=== PATIENT | male | born 1945 | race Caucasian/White ===

== ENCOUNTER 2017-08-24 23:39 | Inpatient (IN) | payer OTHER ==
[~2017-08-24] VITALS: Ht 180.3 cm; Wt 95.5 kg
[2017-08-25 00:02] LABS: HEMATOCRIT 42.1 % (38.0-50.0); MCH 31.3 PG (29.0-34.0); MCHC 33.7 G/DL (30.0-36.0); MCV 92.9 FL (86-99); MEAN PLAT.VOLUME 10.9 uM^3 (9.0-12.4); PLATELET COUNT 182 K/uL (156-360); RBC DIS.WIDTH-SD 44.5 % (39-53); RED BLOOD COUNT 4.53 M/uL (4.00-5.50); WHITE BLOOD COUNT 14.1 K/uL (4.1-10.2)
[2017-08-25 00:13] LABS: CHLORIDE 107 mEq/L (99-109); POTASSIUM 4.2 mEq/L (3.7-5.4); SODIUM 137 mEq/L (136-147)
[2017-08-25 00:14] LABS: GLUCOSE 163 mg/dL (70-99)
[2017-08-25 00:16] LABS: ANION GAP 10 MEQ/L (2-14)
[2017-08-25 00:18] LABS: GFR ESTIMATE (CALCULATED) 42 mL/min/
[2017-08-25 00:19] LABS: UREA NITROGEN (BUN) 24 mg/dL (9-23)
[2017-08-25 01:13] LABS: TOTAL BILIRUBIN 0.3 mg/dL (0.0-1.0)
[2017-08-25 01:14] LABS: ALKALINE PHOSPHATASE 59 IU/L (3-129)
[2017-08-25 01:17] LABS: DIRECT BILIRUBIN 0.2 mg/dL (0.0-0.3)
[2017-08-25 01:18] LABS: LIPASE 24 U/L (1.0-51.0)
[2017-08-25] MEDS ORDERED: LO-DOSE ASPIRIN81 M2 PO (05:05)
[2017-08-25] MEDS ORDERED: VITAMIN B COMP1 EACH PO (05:05)
[2017-08-25] MEDS ORDERED: LOTRISONE15 GM TP (05:06)
[2017-08-25] MEDS ORDERED: ZYRTEC10 M2 PO (05:06)
[2017-08-25] MEDS ORDERED: FISH OIL 1,0001 EAC7 PO (05:08)
[2017-08-25] MEDS ORDERED: PRINIVIL5 MG PO (05:08)
[2017-08-25] MEDS ORDERED: VITAMIN D-32000 UNI2 PO (05:08)
[2017-08-25] MEDS ORDERED: NIFEDIPINE ER30 MG PO (05:09)
[2017-08-25] MEDS ORDERED: MULTIVITAMIN1 EAC2 PO (05:09)
[2017-08-25] MEDS ORDERED: OMEPRAZOLE20 MG PO (05:10)
[2017-08-25] MEDS ORDERED: MIRALAX17 GM PO (05:10)
[2017-08-25] MEDS ORDERED: SIMVASTATIN10 MG PO (05:10)
[2017-08-25] MEDS ORDERED: TAMSULOSIN HCL0.4 MG PO (05:11)
[2017-08-25] MEDS ORDERED: ULTRAM50 MG PO (05:11)
[2017-08-25] MEDS ORDERED: TERAZOSIN HCL2 MG PO (05:11)
[2017-08-25 05:55] VITALS: BP 114/68
[2017-08-25 06:50] LABS: POINT-OF-CARE METER ID UU14100415
[2017-08-25 07:38] LABS: HEMATOCRIT 37.9 % (38.0-50.0); MCH 31.6 PG (29.0-34.0); MCHC 33.8 G/DL (30.0-36.0); MCV 93.6 FL (86-99); MEAN PLAT.VOLUME 10.6 uM^3 (9.0-12.4); PLATELET COUNT 161 K/uL (156-360); RBC DIS.WIDTH-SD 44.4 % (39-53); RED BLOOD COUNT 4.05 M/uL (4.00-5.50); WHITE BLOOD COUNT 9.7 K/uL (4.1-10.2)
[2017-08-25 07:43] LABS: PROTHROMBIN TIME 11.7 SEC (10.2-12.9)
[2017-08-25 07:46] LABS: PTT 25.3 SEC (25-37)
[2017-08-25 07:56] VITALS: BP 97/48
[2017-08-25 08:07] LABS: CHLORIDE 113 mEq/L (99-109); SODIUM 138 mEq/L (136-147)
[2017-08-25 08:08] LABS: POTASSIUM 5.8 mEq/L (3.7-5.4)
[2017-08-25 08:09] LABS: GLUCOSE 131 mg/dL (70-99)
[2017-08-25 08:10] LABS: ANION GAP 3 MEQ/L (2-14)
[2017-08-25 08:13] LABS: GFR ESTIMATE (CALCULATED) 37 mL/min/
[2017-08-25 08:14] LABS: UREA NITROGEN (BUN) 24 mg/dL (9-23)
[2017-08-25 11:46] LABS: POINT-OF-CARE METER ID UU14100415
[2017-08-25 12:06] VITALS: BP 136/72
[2017-08-25 17:56] VITALS: BP 133/73
[2017-08-25 18:03] LABS: POINT-OF-CARE METER ID UU14100415
[2017-08-25 21:29] VITALS: BP 150/78
[2017-08-26] VITALS (8 sets, daily range): BP systolic 117–141; BP diastolic 64–72
[2017-08-26 00:59] LABS: POINT-OF-CARE METER ID UU14208750
[2017-08-26 05:36] LABS: POINT-OF-CARE METER ID UU14314084
[2017-08-26 07:06] LABS: EOSINOPHIL (%) 2.9 % (0-5); EOSINOPHIL COUNT 0.2 K/uL (0-0.3); IMMATURE GRANULOCYTE (%) 0.4 % (0.0-0.7); LYMPHOCYTE COUNT 1.4 K/uL (1.0-2.8); MCH 31.7 PG (29.0-34.0); MCV 96.1 FL (86-99); MEAN PLAT.VOLUME 11.3 uM^3 (9.0-12.4); MONOCYTE (%) 11.3 % (3-12); MONOCYTE COUNT 0.6 K/uL (0-0.8); NEUTROPHIL (%) 57.2 % (45-76); PLATELET COUNT 143 K/uL (156-360); RBC DIS.WIDTH-CV 13.3 % (11.8-14.6); RBC DIS.WIDTH-SD 47.4 % (39-53); RED BLOOD COUNT 3.85 M/uL (4.00-5.50); WHITE BLOOD COUNT 5.2 K/uL (4.1-10.2)
[2017-08-26 07:29] LABS: ANION GAP 7 MEQ/L (2-14); CHLORIDE 110 MEQ/L (99-109); GFR ESTIMATE (CALCULATED) 40 mL/min/; SAMPLE HEMOLYSIS CHECK 0; SAMPLE ICTERIC CHECK 0; SAMPLE LIPEMIA CHECK 0; SODIUM 140 MEQ/L (136-147); UREA NITROGEN (BUN) 23 mg/dL (9-23)
[2017-08-26 07:37] LABS: GLUCOSE 96 mg/dL (70-99); POTASSIUM 4.6 MEQ/L (3.7-5.4)
[2017-08-26 11:11] LABS: POINT-OF-CARE METER ID UU14314084
[2017-08-26 11:59] LABS: ADD MIUA? YES; BILIRUBIN NEGATIVE; BLOOD MODERATE; COLOR YELLOW ((YELLOW)); GLUCOSE (STRIP) NEGATIVE; KETONES NEGATIVE; LEUKOCYTES TRACE; NITRITE NEGATIVE; PROTEIN (STRIP) NEGATIVE; SPECIFIC GRAVITY 1.019 (1.000-1.030); UROBILINOGEN 0.2 MG/DL (0.2-1.0)
[2017-08-26 12:19] LABS: BACTERIA RARE /HPF; EPITHELIAL CELLS NONE SEEN /HPF; HYALINE CASTS 0-5 /LPF; MUCUS TRACE /LPF; RED BLOOD CELLS 20-30 /HPF (0-5); UCUL ADDED? YES
[2017-08-26 17:00] LABS: POINT-OF-CARE METER ID UU14314084
[2017-08-27 03:11] VITALS: BP 108/54
[2017-08-27 07:25] VITALS: BP 133/65
[2017-08-27 08:14] LABS: EOSINOPHIL (%) 0.3 % (0-5); HEMATOCRIT 39.1 % (38.0-50.0); IMMATURE GRANULOCYTE (%) 0.3 % (0.0-0.7); INSTRUMENT ABS NEUTROPHIL CT 5.5 K/uL; LYMPHOCYTE COUNT 1.5 K/uL (1.0-2.8); MCH 30.4 PG (29.0-34.0); MCHC 32.2 G/DL (30.0-36.0); MCV 94.4 FL (86-99); MEAN PLAT.VOLUME 11.1 uM^3 (9.0-12.4); MONOCYTE (%) 7.7 % (3-12); MONOCYTE COUNT 0.6 K/uL (0-0.8); NEUTROPHIL (%) 71.5 % (45-76); NEUTROPHIL COUNT 5.5 K/uL (1.8-6.4); PLATELET COUNT 174 K/uL (156-360); RBC DIS.WIDTH-CV 12.9 % (11.8-14.6); RBC DIS.WIDTH-SD 44.9 % (39-53); RED BLOOD COUNT 4.14 M/uL (4.00-5.50); WHITE BLOOD COUNT 7.7 K/uL (4.1-10.2)
[2017-08-27 08:56] LABS: ALKALINE PHOSPHATASE 47 IU/L (3-129); ANION GAP 8 MEQ/L (2-14); CHLORIDE 111 MEQ/L (99-109); GFR ESTIMATE (CALCULATED) 53 mL/min/; GLUCOSE 101 mg/dL (70-99); POTASSIUM 4.7 MEQ/L (3.7-5.4); SAMPLE HEMOLYSIS CHECK 0; SAMPLE ICTERIC CHECK 0; SAMPLE LIPEMIA CHECK 0; SODIUM 139 MEQ/L (136-147); TOTAL BILIRUBIN 0.7 MG/DL (0.0-1.0); UREA NITROGEN (BUN) 18 mg/dL (9-23)
[2017-08-27 11:50] VITALS: BP 124/62
[2017-08-27] MEDS ORDERED: CIPRO500 MG PO (12:15)
== END 2017-08-27 13:17 | disposition home or self-care (01) | DRG 670 ==
LOC: EME 23:39 → 2EAST 08-25 03:35 → EDOF 08-25 03:35 → ENRESERV 08-25 03:36 → EDOF 08-25 05:45 → ENRESERV 08-25 16:07 → 2EAST 08-25 20:45
PROVIDERS: Hospitalist; Internal Medicine; Physician Assistant; Urology
DX: N13.6 Pyonephrosis (principal); N17.9 Acute kidney failure, unspecified; I10 Essential (primary) hypertension; E78.5 Hyperlipidemia, unspecified; R00.1 Bradycardia, unspecified; G47.33 Obstructive sleep apnea (adult) (pediatric); K21.9 Gastro-esophageal reflux disease without esophagitis; N40.0 Benign prostatic hyperplasia without lower urinary tract symptoms; I35.1 Nonrheumatic aortic (valve) insufficiency; Z79.82 Long term (current) use of aspirin; Z86.73 Personal history of transient ischemic attack (TIA), and cerebral infarction without residual deficits
CPT/HCPCS: 74176; 74420; 80048; 80053; 80076; 81003; 82365 90; 82948; 83690; 85025; 85027; 85610; 85730; 87086; 93005; 99281; 99285; C2625; G0378; J0696; J1100; J1170; J1885; J2250; J2270; J2405; J2765; J3010; J7030; J7050

== ENCOUNTER 2017-08-29 16:06 | Emergency (ER) | payer OTHER ==
[~2017-08-29] VITALS: Ht 180.3 cm; Wt 96.3 kg
[~2017-08-29 16:06] MED LIST: CIPRO500 MG PO; FISH OIL 1,0001 EAC7 PO; LO-DOSE ASPIRIN81 M2 PO; LOTRISONE15 GM TP; MIRALAX17 GM PO; MULTIVITAMIN1 EAC2 PO; NIFEDIPINE ER30 MG PO; OMEPRAZOLE20 MG PO; PRINIVIL5 MG PO; SIMVASTATIN10 MG PO; TAMSULOSIN HCL0.4 MG PO; TERAZOSIN HCL2 MG PO; ULTRAM50 MG PO; VITAMIN B COMP1 EACH PO; VITAMIN D-32000 UNI2 PO; ZYRTEC10 M2 PO
[2017-08-29 17:55] LABS: EOSINOPHIL (%) 0.3 % (0-5); HEMATOCRIT 39.1 % (38.0-50.0); IMMATURE GRANULOCYTE (%) 0.4 % (0.0-0.7); INSTRUMENT ABS NEUTROPHIL CT 8.6 K/uL; LYMPHOCYTE COUNT 0.6 K/uL (1.0-2.8); MCH 31.5 PG (29.0-34.0); MCHC 34.3 G/DL (30.0-36.0); MEAN PLAT.VOLUME 10.8 uM^3 (9.0-12.4); MONOCYTE (%) 5.6 % (3-12); MONOCYTE COUNT 0.6 K/uL (0-0.8); NEUTROPHIL (%) 87.1 % (45-76); NEUTROPHIL COUNT 8.6 K/uL (1.8-6.4); PLATELET COUNT 169 K/uL (156-360); RBC DIS.WIDTH-CV 12.5 % (11.8-14.6); RBC DIS.WIDTH-SD 41.6 % (39-53); RED BLOOD COUNT 4.25 M/uL (4.00-5.50); WHITE BLOOD COUNT 9.8 K/uL (4.1-10.2)
[2017-08-29 18:05] LABS: CHLORIDE 105 mEq/L (99-109); SODIUM 140 mEq/L (136-147)
[2017-08-29 18:07] LABS: GLUCOSE 130 mg/dL (70-99)
[2017-08-29 18:07] LABS: ADD MIUA? YES; BILIRUBIN NEGATIVE; BLOOD LARGE; COLOR YELLOW ((YELLOW)); GLUCOSE (STRIP) NEGATIVE; KETONES NEGATIVE; LEUKOCYTES NEGATIVE; NITRITE NEGATIVE; PROTEIN (STRIP) NEGATIVE; SPECIFIC GRAVITY 1.015 (1.000-1.030); UROBILINOGEN 0.2 MG/DL (0.2-1.0)
[2017-08-29 18:09] LABS: ANION GAP 13 MEQ/L (2-14)
[2017-08-29 18:11] LABS: ALKALINE PHOSPHATASE 54 IU/L (3-129); GFR ESTIMATE (CALCULATED) 49 mL/min/
[2017-08-29 18:12] LABS: UREA NITROGEN (BUN) 17 mg/dL (9-23)
[2017-08-29 18:14] LABS: LIPASE 10 U/L (1.0-51.0)
[2017-08-29 18:15] LABS: TOTAL BILIRUBIN 0.6 mg/dL (0.0-1.0)
[2017-08-29 18:24] LABS: BACTERIA RARE /HPF; EPITHELIAL CELLS NONE SEEN /HPF; MUCUS NONE SEEN /LPF; RED BLOOD CELLS 30-40 /HPF (0-5); WHITE BLOOD CELLS NONE SEEN /HPF (0-5)
[2017-08-29 20:22] VITALS: BP 152/88
[2017-08-29] MEDS ORDERED: ZOFRAN ODT4 MG PO (20:31)
[2017-08-29] MEDS ORDERED: PERCOCET 5/31 TABLET PO (20:31)
== END 2017-08-29 20:41 | disposition home or self-care (01) ==
LOC: EME 16:06
PROVIDERS: Physician Assistant
DX: R10.817 Generalized abdominal tenderness (principal); Z87.442 Personal history of urinary calculi; I10 Essential (primary) hypertension; K21.9 Gastro-esophageal reflux disease without esophagitis; Z96.0 Presence of urogenital implants; Z79.82 Long term (current) use of aspirin
CPT/HCPCS: 74176; 80053; 81003; 83690; 85025; 99281; 99283; J2405; J3010; J7030